=== PATIENT | female | born 1970 | race Two or more races ===

== ENCOUNTER 2020-12-02 07:43 | Emergency (ER) | payer OTHER ==
[~2020-12-02] VITALS: Ht 160 cm; Wt 134.7 kg
[~2020-12-02 07:43] MED LIST: ATIVAN0.5 MG; CLORAZEPATE D3.75 MG; FLURAZEPAM HCL30 MG; KETO10TA2 PO; ORPH100T PO; PEPCID40 MG PO; WELLBUTRIN SR150 MG; ZOFRAN4 MG PO
[2020-12-02] MEDS ORDERED: CLONAZEPAM1 GM MC (07:58)
[2020-12-02] MEDS ORDERED: TOPROL XL25 M1 (07:59)
[2020-12-02] MEDS ORDERED: NORVASC10 MG (07:59)
[2020-12-02] MEDS ORDERED: LEVOTHYROXINE25 MCG (08:00)
== END 2020-12-02 10:49 | disposition home or self-care (01) ==
LOC: ER 07:43
DX: R13.10 Dysphagia, unspecified (principal); R12 Heartburn; R07.0 Pain in throat; Z03.818 Encounter for observation for suspected exposure to other biological agents ruled out

== ENCOUNTER 2021-01-31 23:57 | Emergency (ER) | payer OTHER ==
[~2021-01-31] VITALS: Ht 152.4 cm; Wt 136.1 kg
[~2021-01-31 23:57] MED LIST changes: +CLONAZEPAM1 GM MC; +LEVOTHYROXINE25 MCG; +NORVASC10 MG; +TOPROL XL25 M1
[2021-02-01] MEDS ORDERED: KETO10TA2 PO (01:39)
[2021-02-03] MEDS ORDERED: MOBIC15 MG PO ×2 (04:47→04:49)
[2021-02-03] MEDS ORDERED: ORPHENADRINE C100 MG PO ×2 (04:47→04:49)
== END 2021-02-01 01:41 ==
LOC: ER 23:57
DX: M62.838 Other muscle spasm (principal); I10 Essential (primary) hypertension; R51.9 Headache, unspecified

== ENCOUNTER → 2021-02-02 | Emergency (ER) | payer OTHER ==
[~2021-02-02] VITALS: Ht 160 cm; Wt 136.1 kg
[~2021-02-02] MED LIST changes: +MOBIC15 MG PO; +ORPHENADRINE C100 MG PO
== END | disposition home or self-care (01) ==
LOC: ER 23:58
DX: M54.2 Cervicalgia (principal)

== ENCOUNTER → 2021-03-27 | Emergency (ER) | payer OTHER ==
[~2021-03-27] VITALS: Ht 160 cm; Wt 136.1 kg
[~2021-03-27] MED LIST changes: +DICLOFENAC SODI75 MG PO; +NORFLEX100MG PO; +ZESTRIL5 MG
== END | disposition left against medical advice (07) ==
LOC: ER 04:59
DX: Z53.21 Procedure and treatment not carried out due to patient leaving prior to being seen by health care provider (principal)

== ENCOUNTER 2021-03-28 01:36 | Emergency (ER) | payer OTHER ==
[~2021-03-28] VITALS: Ht 160 cm; Wt 136.1 kg
[~2021-03-28 01:36] MED LIST changes: -DICLOFENAC SODI75 MG PO; -NORFLEX100MG PO
[2021-03-28] MEDS ORDERED: DICLOFENAC SODI75 MG PO (02:46)
[2021-03-28] MEDS ORDERED: NORFLEX100MG PO (02:46)
== END 2021-03-28 03:18 | disposition home or self-care (01) ==
LOC: ER 01:36
DX: M62.838 Other muscle spasm (principal); I10 Essential (primary) hypertension

== ENCOUNTER 2021-12-28 | Emergency (ER) | payer OTHER ==
[~2021-12-28] VITALS: Ht 160 cm; Wt 122.9 kg
[~2021-12-28] MED LIST changes: +DICLOFENAC SODI75 MG PO; +NORFLEX100MG PO
[2021-12-28] MEDS ORDERED: NORFLEX100MG PO (04:21)
[2021-12-28] MEDS ORDERED: MEDROLPACK PO (04:21)
== END 2021-12-28 05:58 | disposition home or self-care (01) ==
LOC: ER
DX: M62.838 Other muscle spasm (principal); R53.1 Weakness

== ENCOUNTER 2022-01-05 17:58 | Emergency (ER) | payer OTHER ==
[~2022-01-05] VITALS: Ht 160 cm; Wt 121.6 kg
[~2022-01-05 17:58] MED LIST changes: +MEDROLPACK PO
[2022-01-05] MEDS ORDERED: KETO10TA2 PO (20:40)
[2022-01-05] MEDS ORDERED: CIPRO500 MG PO (20:40)
[2022-01-05] MEDS ORDERED: TAMS0.4C PO (20:40)
== END 2022-01-05 20:44 | disposition home or self-care (01) ==
LOC: ER 17:58
DX: N20.1 Calculus of ureter (principal); I10 Essential (primary) hypertension; E11.9 Type 2 diabetes mellitus without complications

== ENCOUNTER 2022-04-15 14:13 | Outpatient (CLI) | payer OTHER ==
[~2022-04-15 14:13] MED LIST changes: +CIPRO500 MG PO; +TAMS0.4C PO
== END 2022-04-15 14:18 | disposition home or self-care (01) ==
LOC: SONOGRAMA 14:13
DX: K76.0 Fatty (change of) liver, not elsewhere classified (principal)

== ENCOUNTER 2022-06-12 21:51 | Emergency (ER) | payer OTHER ==
[~2022-06-12] VITALS: Ht 160 cm; Wt 107.5 kg
[2022-06-13] MEDS ORDERED: PEPCID40 MG PO (05:18)
[2022-06-13] MEDS ORDERED: CEPHALEXIN250 MG/5 M PO (05:18)
[2022-06-13] MEDS ORDERED: ONDANSETRON ODT4 MG PO (05:18)
== END 2022-06-13 05:33 ==
LOC: ER 21:51
DX: N39.0 Urinary tract infection, site not specified (principal); E03.9 Hypothyroidism, unspecified; I10 Essential (primary) hypertension

== ENCOUNTER 2022-09-05 22:03 | Emergency (ER) | payer OTHER ==
[~2022-09-05] VITALS: Ht 160 cm; Wt 94.3 kg
[~2022-09-05 22:03] MED LIST changes: +CEPHALEXIN250 MG/5 M PO; +ONDANSETRON ODT4 MG PO
== END 2022-09-06 03:31 | disposition home or self-care (01) ==
LOC: ER 22:03
DX: R42 Dizziness and giddiness (principal); R10.9 Unspecified abdominal pain; I10 Essential (primary) hypertension

== ENCOUNTER 2023-10-03 11:03 | Emergency (ER) | payer OTHER ==
[~2023-10-03] VITALS: Ht 160 cm; Wt 79.4 kg
[2023-10-03] MEDS ORDERED: LOSARTAN POTASS50 MG (11:56)
[2023-10-03] MEDS ORDERED: ACETAMINOPHEN 500 MG GEL..CAP PO ONE (12:27)
[2023-10-03] MEDS ORDERED: FAMOtidine 200mg/20ml VIAL ONE (12:28)
[2023-10-03] MEDS ORDERED: FAMOtidine 10 MG/ML (4ML VIAL) IV ONE (12:30)
[2023-10-03] MEDS ORDERED: OxyCODONE HCL/APAP UD (PERCOCET) PO ONE (12:30)
[2023-10-03] MEDS ORDERED: 0.9 % SODIUM CHLORIDE 500 ML IV ONE (12:30)
[2023-10-03 12:53] LABS: HEMATOCRIT 27.9 % (36.0-45.00); MEAN CELL VOLUME 75.7 fL (80.00-100.00); MEAN CORPUSCULAR HGB CONC 32.1 g/dl (32.0-36.0); PLATELET COUNT 229 K/uL (150-450); RED BLOOD COUNT 3.69 M/uL (4.00-6.00)
[2023-10-03 12:54] LABS: MEAN CORPUSCULAR HEMOGLOBIN 24.3 pg (27.00-32.0); RED CELL DISTRIBUTION WIDTH 18.2 % (11.5-14.5)
[2023-10-03 13:53] LABS: ALBUMIN 3.2 gm/dL (3.4-5.0); BILIRUBIN TOTAL 0.34 mg/dL (0.3-1.2); CALCIUM 8.5 mg/dL (8.5-10.1); CREATININE SERUM 0.67 mg/dL (0.55-1.02); GFR 92.79; GLOBULINA 3.5 G/DL (2.4-3.5); POTASSIUM 3.58 mEq/L (3.5-5.1); TOTAL PROTEIN 6.7 gm/dL (6.4-8.2)
[2023-10-03] MEDS ORDERED: DIPHENHYDRAMINE HCL 50 MG/ML VIAL 1ML IV ONE (15:45)
[2023-10-03] MEDS ORDERED: METHYLPREDNISOLONE SOD SUCC 40 MG VIAL IV ONE (15:45)
[2023-10-03] MEDS ORDERED: KETOROLAC TROMETHAMINE 60 MG VIAL IM ONE ×2 (15:45→15:51)
[2023-10-03] MEDS ORDERED: DIPHENHYDRAMINE HCL 50 MG/ML VIAL 1ML ONE ×2 (15:50→19:55)
[2023-10-03] MEDS ORDERED: METHYLPREDNISOLONE SOD SUCC 40 MG VIAL ONE (15:51)
[2023-10-03 16:37] LABS: PH,URINE 7.5 (5.0-8.0); URINE APPEARANCE Clear; URINE BILIRRUBIN Negative (NEGATIVE); URINE BLOOD Negative; URINE COLOR Yellow; URINE GLUCOSE Negative (NEGATIVE); URINE LEUKOCYTE Negative; URINE NITRATE Negative; URINE PROTEIN Negative (NEGATIVE); URINE UROBILINOGEN 0.2 E.U./dl
[2023-10-03 16:42] LABS: URINE BACTERIA 784.6 uL (0.0-1933); URINE EPITHELIAL CELLS 31.5 uL (0.0-38.8); URINE RBC 1.2 uL (0.0-20.8); URINE WBC 17.7 uL (0.0-23.2)
[2023-10-03] MEDS ORDERED: EXCEDRIN MIGRA1 EAC1 PO (19:10)
[2023-10-03] MEDS ORDERED: KETOROLAC TROMETHAMINE 30 MG VIAL IM STA (19:47)
[2023-10-03] MEDS ORDERED: DIPHENHYDRAMINE HCL 50 MG/ML VIAL 1ML IM STA (19:47)
[2023-10-03] MEDS ORDERED: KETOROLAC TROMETHAMINE 30 MG VIAL ONE (19:54)
== END 2023-10-03 19:35 | disposition home or self-care (01) ==
LOC: ER 11:04
PROVIDERS: General Practice
DX: G43.909 Migraine, unspecified, not intractable, without status migrainosus (principal); J00 Acute nasopharyngitis [common cold]; E03.8 Other specified hypothyroidism; I10 Essential (primary) hypertension; Z20.822 Contact with and (suspected) exposure to COVID-19
CPT/HCPCS: 36415; 70450; 96365; 99284; J1200; J1885; J3490; J7042

== ENCOUNTER 2024-03-14 17:37 | Emergency (ER) | payer OTHER ==
[~2024-03-14] VITALS: Ht 160 cm; Wt 79.4 kg
[~2024-03-14 17:37] MED LIST changes: +EXCEDRIN MIGRA1 EAC1 PO; +LOSARTAN POTASS50 MG
[2024-03-14] MEDS ORDERED: 0.9 % SODIUM CHLORIDE 1,000 ML IV ONE (19:15)
[2024-03-14 20:21] LABS: HEMATOCRIT 38.7 % (36.0-45.00); HEMOGLOBIN 12.5 g/dL (12.0-15.00); MEAN CELL VOLUME 84.3 fL (80.00-100.00); MEAN CORPUSCULAR HEMOGLOBIN 27.2 pg (27.00-32.0); MEAN CORPUSCULAR HGB CONC 32.3 g/dl (32.0-36.0); PLATELET COUNT 224 K/uL (150-450); RED CELL DISTRIBUTION WIDTH 16.3 % (11.5-14.5)
[2024-03-14 20:39] LABS: ABG PH 7.433 (7.35-7.45); ABG PO2 126.4 mmHg (80-100); ABG pCO2 33.1 mmHg (35-45); BASE EXCESS -1.7 mmol/l; BICARBONATE 21.7 mmol/l (23-25); SaO2 98.9 %; Tco2 22.7 mmol/l; allen test SATISFACTORY; puncture site RADIAL LEFT
[2024-03-14 20:39] LABS: PARTIAL THROMBOPLASTIN TIME 29.5 SECONDS (22.0-34.0); PROTHROMBIN TIME 10.9 SECONDS (9.0-11.5)
[2024-03-14 20:40] LABS: o2 21 %
[2024-03-14 21:32] LABS: TSH 1.57 uIU/mL (0.358-3.74)
[2024-03-14 21:34] LABS: URINE APPEARANCE Clear; URINE BILIRRUBIN Negative (NEGATIVE); URINE BLOOD Negative; URINE COLOR Yellow; URINE GLUCOSE Negative (NEGATIVE); URINE KETONE Negative (NEGATIVE); URINE LEUKOCYTE Trace; URINE NITRATE Negative; URINE PROTEIN Negative (NEGATIVE); URINE UROBILINOGEN 0.2 E.U./dl
[2024-03-14 21:37] LABS: URINE BACTERIA 4250.4 uL (0.0-1933); URINE EPITHELIAL CELLS 46.5 uL (0.0-38.8); URINE RBC 3.3 uL (0.0-20.8); URINE WBC 51.9 uL (0.0-23.2)
[2024-03-14 21:38] LABS: URINE CAST 0.14 uL (0.0-1.40)
[2024-03-14 21:49] LABS: ALBUMIN 3.3 gm/dL (3.4-5.0); BILIRUBIN TOTAL 0.31 mg/dL (0.3-1.2); CALCIUM 8.5 mg/dL (8.5-10.1); CREATININE SERUM 0.58 mg/dL (0.55-1.02); GFR 109.6; GLOBULINA 3.4 G/DL (2.4-3.5); POTASSIUM 4.61 mEq/L (3.5-5.1); TOTAL PROTEIN 6.7 gm/dL (6.4-8.2)
[2024-03-14] MEDS ORDERED: BUTALB/ACETAMINOPHEN/CAFFEINE 1 TAB TABLET PO ONE ×2 (22:30→22:36)
[2024-03-14] MEDS ORDERED: BUTALBIT-ACETA1 EACH PO (22:41)
== END 2024-03-14 22:45 | disposition home or self-care (01) ==
LOC: ER 17:39
PROVIDERS: General Practice
DX: G43.909 Migraine, unspecified, not intractable, without status migrainosus (principal); R53.1 Weakness; I10 Essential (primary) hypertension; E03.9 Hypothyroidism, unspecified; Z20.822 Contact with and (suspected) exposure to COVID-19

== ENCOUNTER 2024-08-29 22:28 | Emergency (ER) | payer OTHER ==
[~2024-08-29] VITALS: Ht 160 cm; Wt 79.4 kg
[~2024-08-29 22:28] MED LIST changes: +BUTALBIT-ACETA1 EACH PO
[2024-08-30] MEDS ORDERED: KETOROLAC TROMETHAMINE 30 MG VIAL IV STA (01:13)
[2024-08-30] MEDS ORDERED: HALOPERIDOL LACTATE 5 MG/ML AMPUL IM STA (01:14)
[2024-08-30] MEDS ORDERED: DIPHENHYDRAMINE HCL 50 MG/ML VIAL 1ML IM STA (01:15)
[2024-08-30] MEDS ORDERED: KETOROLAC TROMETHAMINE 30 MG VIAL ONE (01:17)
[2024-08-30] MEDS ORDERED: HALOPERIDOL LACTATE 5 MG/ML AMPUL ONE (01:17)
[2024-08-30] MEDS ORDERED: DIPHENHYDRAMINE HCL 50 MG/ML VIAL 1ML ONE (01:17)
[2024-08-30 01:53] LABS: BASO % 0.9 % (0.1-1.2); EOS # 0.34 (0.04-0.54); EOS % 4.4 % (0.7-7.0); HEMATOCRIT 34.3 % (34.1-44.9); LYMPH # 2.41 (1.18-3.74); MEAN CORPUSCULAR HEMOGLOBIN 25.6 pg (25.6-32.2); MONO # 0.64 (0.24-0.82); MONO % 8.2 % (4.7-12.5); NEUT % 55.4 % (34.0-71.1); PLATELET COUNT 279 K/uL (163-369); RED BLOOD COUNT 4.29 M/uL (3.93-5.22); RED CELL DISTRIBUTION WIDTH 16.1 % (11.6-14.4)
[2024-08-30 02:17] LABS: CALCIUM 8.5 mg/dL (8.5-10.1); CREATININE SERUM 0.64 mg/dL (0.55-1.02); GFR 97.44; POTASSIUM 4.99 mEq/L (3.5-5.1)
== END 2024-08-30 05:33 | disposition home or self-care (01) ==
LOC: ER 22:28
DX: G43.909 Migraine, unspecified, not intractable, without status migrainosus (principal)

== ENCOUNTER 2025-02-11 05:57 | Emergency (ER) | payer OTHER ==
[~2025-02-11] VITALS: Ht 160 cm; Wt 79.4 kg
[2025-02-11] MEDS ORDERED: 0.9 % SODIUM CHLORIDE 1,000 ML IV STA (07:30)
[2025-02-11] MEDS ORDERED: KETOROLAC TROMETHAMINE 30 MG VIAL IU STA (07:33)
[2025-02-11] MEDS ORDERED: METOCLOPRAMIDE HCL 5 MG/ML VIAL IV STA (07:33)
[2025-02-11] MEDS ORDERED: DEXAMETHASONE SODIUM PHOSPHATE 4 MG/ML VIAL IV STA (07:33)
[2025-02-11] MEDS ORDERED: DIPHENHYDRAMINE HCL 50 MG/ML VIAL 1ML IV STA (07:33)
[2025-02-11 09:24] LABS: BASO % 0.6 % (0.1-1.2); EOS # 0.28 (0.04-0.54); EOS % 3.9 % (0.7-7.0); LYMPH # 2.29 (1.18-3.74); LYMPH % 32.3 % (19.3-53.1); MEAN PLATELET VOLUME 11.70 fl (9.4-12.4); MONO # 0.69 (0.24-0.82); MONO % 9.7 % (4.7-12.5); NEUT # 3.79 (1.56-6.13); NEUT % 53.4 % (34.0-71.1); RED CELL DISTRIBUTION WIDTH 18.1 % (11.6-14.4)
[2025-02-11 09:31] LABS: ERYTHROCYTE SEDIMENTATION RATE 40 mm/hr (0-30)
[2025-02-11 09:46] LABS: INR 0.99
[2025-02-11 10:02] LABS: ALT/SGPT 38 U/L (12-78); AST/SGOT 25 U/L (15-37); BILIRUBIN TOTAL 0.24 mg/dL (0.3-1.2); BUN CREA RATIO 16 (7.0-25.0); CREATININE SERUM 0.57 mg/dL (0.55-1.02); GFR 111.38; GLOBULINA 3.4 G/DL (2.4-3.5); GLUCOSE FASTING 96 mg/dL (65-100); OSMOLALITY SERUM 285 MOSM/KG (275-295)
[2025-02-11] MEDS ORDERED: BUTALB-ACETAMI1 EAC2 PO (13:04)
== END 2025-02-11 14:02 | disposition home or self-care (01) ==
LOC: ER 05:58
PROVIDERS: Physician Assistant Medical
DX: G43.909 Migraine, unspecified, not intractable, without status migrainosus (principal); I10 Essential (primary) hypertension; E03.8 Other specified hypothyroidism